=== PATIENT | female | born 1975 | race African-American/Black ===

== ENCOUNTER 2019-01-11 12:12 | Inpatient (IN) | payer OTHER ==
[~2019-01-11] VITALS: Ht 167.6 cm; Wt 104.3 kg
[2019-01-11 12:15] VITALS: BP 169/107
[2019-01-11] MEDS ORDERED: LOPRESSOR25 PO (12:17)
[2019-01-11 13:08] LABS: HEMATOCRIT 36.3 % (37.0-47.0); HEMOGLOBIN 11.9 gm/dL (12.0-15.0); MCH 26.6 pg (26.0-34.0); MCHC 32.9 g/dL (28.0-37.0); PLATELET COUNT 340 thou/uL (150-400); RBC 4.48 mil/uL (4.20-5.00); RDW 15.5 % (10.5-14.5)
[2019-01-11 13:25] LABS: CALCIUM 9.1 mg/dL (8.5-10.1); CREATININE 0.9 mg/dL (0.6-1.0); POTASSIUM 3.4 mmol/L (3.5-5.1)
[2019-01-11 13:30] LABS: ALBUMIN 3.1 g/dL (3.4-5.0); TOTAL BILIRUBIN 0.4 mg/dL (<0.1-1.0); TOTAL PROTEIN 7.9 g/dL (6.4-8.2)
[2019-01-11 13:50] LABS: ABSOLUTE NEUTROPHILS 10.5 thou/uL (1.4-8.2)
[2019-01-11 13:51] LABS: ANISOCYTOSIS 1+; HYPOCHROMASIA SLIGHT; LARGE PLATELETS OCCASIONAL
[2019-01-11 15:40] LABS: CSF CLARITY CLEAR; CSF COLOR COLORLESS; CSF RBC 1 /mm3; CSF WBC 2 /mm3 (0-10); VOLUME 8 ml
[2019-01-11 15:41] LABS: URINE BILIRUBIN NEGATIVE (Negative); URINE BLOOD 3+ (Negative); URINE CLARITY CLEAR; URINE COLOR YELLOW; URINE GLUCOSE-RANDOM* NEGATIVE (Negative); URINE KETONES NEGATIVE (Negative); URINE LEUKOCYTES-REFLEX NEGATIVE (Negative); URINE NITRITE-REFLEX NEGATIVE (Negative); URINE PROTEIN (DIPSTICK) TRACE (Negative); URINE SPECIFIC GRAVITY 1.025 (1.005-1.035); URINE UROBILINOGEN 0.2 E.U./dl (0.2-1.0)
[2019-01-11 15:44] LABS: CSF GLUCOSE 68 mg/dL (40-70)
[2019-01-11 15:50] LABS: CASTS None Seen /LPF (None Seen); SQUAMOUS 0-3 Few /LPF (0-3); URINE WBC-REFLEX 0-5 Rare /HPF (0-5)
[2019-01-11 15:51] LABS: AMORPHOUS URATES Many /LPF (None Seen)
--- NOTE | 2019-01-11 16:47 | EKG ---
[address] [address] ELECTROCARDIOGRAM REPORT Name: EDER ESPAÑA Room #: 170-3 ADM IN M.R.#: [id number] ������������������ Admission: 01/11/19 ������������������ Attend Phys: Jordan Reyes MD Discharge: ������������������ Date of : 79 Report #: [id number] ����������������������������������������������������������������� [id number] THIS REPORT FOR: //name// [facility] ED Test Date: 2019-01-11 Test Time: 12:34:44 Pat Name: EDER ESPAÑA Department: Room: 170 Gender: F Quality Review Specialist: LAMONT : 1975 Requested By: Austyn Santana Order Number: [id number] MD: Derek Dickey Measurements Intervals [place] Rate: 132 P: 49 AK: 145 QRS: -4 QRSD: 77 T: 90 QT: 272 QTc: 403 Interpretive Statements Sinus tachycardia Nonspecific T abnormalities, lateral leads No previous ECG available for comparison Electronically Signed On 01-11-2019 16:47:01 B[employer]BALL [employer]ER by Derek Dickey [email or web address] ��������������������������������������������� <ELECTRONICALLY SIGNED> ���������������������������������������� By: Derek Dickey MD ��������������������������������������������� 01/11/19 1647 1234 1234 Derek Dickey MD /SUNDAR
[2019-01-11 17:07] VITALS: BP 133/76
[2019-01-11 17:14] VITALS: BP 126/74
[2019-01-11 18:16] VITALS: BP 135/80
--- NOTE | 2019-01-11 19:07 | NUR ---
ADMITTED FROM ER UNDER 'S CARE. HR STILL AROUND 130 UPON ADMISSION. CALLED AND REPORTED. AFEBRILE UPON ADMISSION. AXOX4. C/O HEAD AND NBEACK PAIN. TX WITH MORHPINE. BREATHING REGULAR AND CTA JEAN MARIE. ABD SOFT AND NON TENDER. SCD APPLIED. ALL QUESTIONS AND CONCERNED ANSWERED. INITIATED IV ATB TX. NO S/S ACUTE DISTRESS NOTED OR REPORTED AT THIS TIME. FAMILY AT BEDSIDE. BEAN CALLED TO , ID.
[2019-01-11 20:00] VITALS: BP 139/82
--- NOTE | 2019-01-12 03:58 | NUR ---
PT GIVEN MORPHINE DURING THE NIGHT FOR PAIN PT USED CALL LIGHT EFFECTIVELY PT SLELPT MOST OF THE NIGHT NO ISSUES OVERNIGHT.
[2019-01-12 04:45] VITALS: BP 129/83
[2019-01-12 05:38] LABS: HEMATOCRIT 32.9 % (37.0-47.0); HEMOGLOBIN 10.6 gm/dL (12.0-15.0); MCH 26.4 pg (26.0-34.0); MCHC 32.2 g/dL (28.0-37.0); RBC 4.02 mil/uL (4.20-5.00); RDW 15.7 % (10.5-14.5); WBC 11.5 thou/uL (4.0-11.0)
[2019-01-12 05:56] LABS: CREATININE 0.8 mg/dL (0.6-1.0)
--- NOTE | 2019-01-12 06:27 | NUR ---
PT CALL LIGHT NROKEN BEGINNING OF SHIFT MAINTENANCE CALLED CALL LIGHT FIXED
[2019-01-12 08:00] VITALS: BP 151/91
[2019-01-12 15:00] VITALS: BP 138/85
--- NOTE | 2019-01-12 15:53 | NUR ---
PT ADMITTED RELATED TO TACHYCARDIA, HEAD/NECK PAIN. CM REVIEWED CHART AND SPOKE WITH CARE TEAM. CM MET WITH PT AND MOTHER AT BEDSIDE THIS DAY. PT IS A&O X4. CM ROLE INTRODUCED. PT INDICATED SHE LIVES IN A HOUSE WITH DTR AND NEPHEW. SHE INDICATED IT'S A RANCH STYLE HOUSE WITH NO STEPS TO ENTER AND NO STEPS INSIDE. 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 PT INDICATED NO DME OR HH HX. PT STATED THAT SHE PLANS TO RETURN HOME ONCE MEDICALLY STABLE. CM TO FOLLOW INDICATED WITH DC PLANNING.
[2019-01-12 19:30] VITALS: BP 137/80
--- NOTE | 2019-01-12 19:41 | NUR ---
CONTINUED WITH NECK/HEAD AND BACK PAIN TODAY. MEDICATED WITH TORADOL X 2 AND MORPHINE X 1 AND HELPFUL. UP INDEPENDENTLY TO BATHROOM WITH STEADY GAIT. MRI DONE THIS AM AND WAS NORMAL. ADVANCED TO REGULAR DIET FOR SUPPER. DENIED NAUSEA. LOW GRADE FEVER OF 99.0 THIS AM. MRSA MASAL SWAB SENT TO LAB. POTASSIUM 3.0. RECEIVED 3, 20MEQ PO DOSES THIS AM. WILL RECHECK IN AM. VERY PLEASANT AND COOPERATIVE.
[2019-01-13 05:35] VITALS: BP 148/96
[2019-01-13 05:49] LABS: ABSOLUTE NEUTROPHILS 6.9 thou/uL (1.4-8.2); BASOPHILS 0.4 % (0.0-2.0); EOSINOPHILS 1.5 % (0.0-3.0); HEMATOCRIT 32.6 % (37.0-47.0); HEMOGLOBIN 10.7 gm/dL (12.0-15.0); LYMPHOCYTES 18.9 % (24.0-44.0); MCH 26.9 pg (26.0-34.0); MCHC 32.7 g/dL (28.0-37.0); MCV 82.4 fL (80.0-100.0); MONOCYTES 5.8 % (1.0-8.0); PLATELET COUNT 305 thou/uL (150-400); POLYS 73.4 % (36.0-66.0); RBC 3.96 mil/uL (4.20-5.00); RDW 15.2 % (10.5-14.5); WBC 9.4 thou/uL (4.0-11.0)
[2019-01-13 05:59] LABS: CALCIUM 8.2 mg/dL (8.5-10.1); CREATININE 0.8 mg/dL (0.6-1.0); POTASSIUM 3.3 mmol/L (3.5-5.1)
[2019-01-13 07:15] VITALS: BP 151/90
[2019-01-13 15:00] VITALS: BP 156/100
--- NOTE | 2019-01-13 15:05 | NUR ---
PATIENT ARRIVED TO SENIOR SUITES WITH FAMILY AT BEDSIDE.PATIENT WAS ORIENTED TO ROOM.PATIENT WAS ABLE TO AMBULATE WO BED FROM WHEELCHAIR.PT HAS ALL OF HER BELONGINGS WITH HER.CHART WAS BROUGHT TO UNIT.PT HAS IV INTACT AND INFUSING.
[2019-01-13 19:34] VITALS: BP 153/111
--- NOTE | 2019-01-14 03:54 | NUR ---
PATIENT ALERT AND ORIENTED X4. UP ADLIB. FAMILY AT BEDSIDE IN EARLY EVENING. COMPLAINT OF HEADACHE - GIVEN MORPHINE IV PRN WITH GOOD RESULTS. NAUSEA WITH EMESIS, MEDICATED WITH ZOFRAN - NO FURTHER N/V. LAB CALLED AND STATED THAT PATIENT HAD A POSITIVE BLOOD CULTURE - GRAM + COCCI. MEDIUM BM REPORTED. RESTING QUIETLY, WILL MONITOR.
[2019-01-14 07:33] LABS: HEMATOCRIT 32.2 % (37.0-47.0); HEMOGLOBIN 10.8 gm/dL (12.0-15.0); MCH 27.1 pg (26.0-34.0); MCHC 33.5 g/dL (28.0-37.0); MCV 80.8 fL (80.0-100.0); RBC 3.98 mil/uL (4.20-5.00); RDW 15.2 % (10.5-14.5); WBC 7.4 thou/uL (4.0-11.0)
[2019-01-14 07:50] VITALS: BP 156/103
--- NOTE | 2019-01-14 15:39 | NUR ---
ASSUMED PATIENT AND CARES AT 0715, PATIENT LYING IN BED WOKE A&OX4, ABLE TO MAKE NEEDS KNOWN, PATIENT CURRENTLY WAITING FOR IV TEAM TO BE CONTACTED TO PLACE NEW IV, IV STOPPED WORKING PRIOR TO SHIFT CHANGE, PATIENT RECEIVED PAIN MEDICINE FOR HEADACHE PRIOR TO SHIFT CHANGE AND STATES ITS BETTER, REMAINS INDEPENDENT WITH ADLS AND TRANSFERS, PERSONAL BELONGINGS AND CALL LIGHT IN REACH, WILL CONTINUE TO MONITOR
[2019-01-14 17:15] VITALS: BP 153/93
--- NOTE | 2019-01-15 05:01 | NUR ---
PATIENT ALERT AND ORIENTED X4. UP ADLIB. C/O HEADACHE AND MEDICATED WITH GOOD RESULTS. IVPB INFUSING. NO C/O N/V. RESTING QUIETLY. WILL MONITOR.
[2019-01-15 08:39] VITALS: BP 169/99
[2019-01-15] MEDS ORDERED: LOPRESSOR50 PO (10:32)
[2019-01-15] MEDS ORDERED: KEFLEX500 M1 PO (10:32)
[2019-01-15 10:45] VITALS: BP 169/99
--- NOTE | 2019-01-15 11:06 | HC ---
[facility] [place] [address] CONSULTATION Name: EDER ESPAÑA Room #: 220-P ADM IN M.R.#: [id number] Admission: 01/11/19 ������������������ Attend Phys: Jordan Reyes MD Discharge: ������������������ Date of : [birth year] Report #: [id number] THIS REPORT FOR: //name// CC: Jordan TURNER unknown DATE OF SERVICE: 01/12/2019 ATTENDING PHYSICIAN: Jordan Reyes MD REASON FOR CONSULTATION: Fever. HISTORY OF PRESENT ILLNESS: The patient is a 43-year-old white woman admitted through the Emergency Room with history of headaches and neck pain. The patient was found to be febrile. She started on combination of Zosyn, vancomycin, acyclovir and Tamiflu. The patient undergoes spinal tap. This is negative for meningitis. She is scheduled for MRI of the C-spine. This is pending. The patient relates had neck pain and headache in the occipital region associated with some vomiting and fevers. She also is tachycardic and had vomiting a couple of occasion. PAST MEDICAL HISTORY: Hypertension. Hysterectomy for fibroids at [facility]. Cervical spine surgery and attempted spinal cord stimulator, which was not inserted on account of some side effects, complication. The patient is still having some occipital headaches and neck pain and the MRI is pending. 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 DRUG ALLERGIES: None listed. MEDICATIONS: The patient is on treatment with Tamiflu 75 mg b.i.d., acyclovir 600 mg IV every 8 hours, Zosyn 3.375 grams IV every 8 hours, vancomycin 1 gram IV every 8 hours. She is also on metoprolol, enoxaparin, morphine sulfate, acetaminophen, ondansetron as well as ketorolac. REVIEW OF SYSTEMS: See H and P and as above. PHYSICAL EXAMINATION: GENERAL: A well-developed, overweight woman. VITAL SIGNS: Temperature maximum 102.7 on 01/11/2018 at 12:46 p.m. Currently, temperature 99, pulse remains elevated at 115, respirations 16, BP 151/91. HEENMT: Head normocephalic, atraumatic. Pupils reactive. Mouth: No thrush or hairy leukoplakia. NECK: Cervical spine scar from previous C-spine surgery. Neck is supple, no thyromegaly. [facility] [address] [place] [address] CONSULTATION Name: EDER ESPAÑA Room #: 220-P [facility] IN M.R.#: [id number] Admission: 01/11/19 ������������������ Attend Phys: Jordan Reyes MD Discharge: ������������������ Date of : 79 Report #: [id number] LUNGS: Clear. HEART: S1, S2. No gallop or murmur. ABDOMEN: Soft, no masses or megaly. PELVIC AND RECTAL: Deferred. EXTREMITIES: No clubbing, cyanosis. NEUROLOGIC: Grossly within normal limits. LABORATORY DATA: O2 saturation 100% on room air. Spinal fluid normal. Sodium 138, potassium 3, BUN 7, creatinine 0.8, calcium 8.8, albumin low at 3.1 g/dL. C-reactive protein 119.9 ng/L. WBC on admission 13,000, hemoglobin 11.9 g/dL, platelets 340,000. White blood cell count differential revealed 81% segmented neutrophils. ESR 70 mm per hour. Urinalysis revealed trace protein, microscopic hematuria, bacteriuria and many amorphous urates. Influenza A and B negative. MICROBIOLOGY DATA: Blood cultures, no growth so far. Urine culture pending. RADIOLOGY EVALUATION: Chest x-ray revealed no acute pulmonary infiltrates. MRI of the thoracic and lumbar spine pending. I suppose we should add MRI of the cervical spine as well. ASSESSMENT: 1. Febrile illness with elevation of ESR and CRP and neck pain, headache of undetermined etiology. 2. Hypertension. 3. Status post hysterectomy and C-spine surgery. 4. Microscopic hematuria and bacteriuria. SUGGESTIONS: Recommend discontinuing acyclovir and Tamiflu. Possibly discontinue vancomycin if MRSA is by PCR negative. Suspect may be dealing with possible acute urinary tract infection and toxic headaches, neck pain. Obviously, we need MRI of the C-spine, T spine and L spine. Dr. Reyes, thank you for requesting my suggestion. ��������������������������������������������� <ELECTRONICALLY SIGNED> ���������������������������������������� By: Arcadio Dickey MD ��������������������������������������������� 01/15/19 1106 1006 09 Arcadio Dickey MD /nt
--- NOTE | 2019-01-15 12:57 | NUR ---
ASSUMED CARE AT SHIFT CHANGE. PT A/O X 4, CALM/PLESANT. DENIES PAIN THIS AM. VSS. PT UPDATED ON POC. PLAN TO DC TODAY. IV DISCONTINUED AND DC INFO DISCUSSED WITH PT. ALL QUESTIONS ANSWERED. SENT WITH RX X 2 AND CARE NOTES. PT ASSISTED HOME WITH FAMILY; WC TO VEHICLE. PT LEFT UNIT AROND 1230.
== END 2019-01-15 12:30 | disposition home or self-care (01) | DRG 690 ==
LOC: ER 12:12 → 4W 16:08 → EROBS 16:08 → 4W 17:07 → SICU 01-13 14:39 → ENTRNSPT 01-15 12:09 → EDTRNSPTSTS 01-15 12:12 → SICU 01-15 12:30
PROVIDERS: Emergency Medicine; ADMIT Hospitalist
PROC: 009U3ZX Drainage of Spinal Canal, Percutaneous Approach, Diagnostic (ICD-10-PCS; principal; 2019-01-11)
DX: N30.91 Cystitis, unspecified with hematuria (principal); R00.0 Tachycardia, unspecified; D72.829 Elevated white blood cell count, unspecified; E66.9 Obesity, unspecified; I10 Essential (primary) hypertension; B96.1 Klebsiella pneumoniae [K. pneumoniae] as the cause of diseases classified elsewhere; E87.6 Hypokalemia; Z90.710 Acquired absence of both cervix and uterus; Z68.37 Body mass index [BMI] 37.0-37.9, adult; Z79.899 Other long term (current) drug therapy
CPT/HCPCS: 10045; 15002

== ENCOUNTER 2019-12-21 15:54 | Emergency (ER) | payer OTHER ==
[~2019-12-21] VITALS: Ht 167.6 cm; Wt 104.3 kg
[~2019-12-21 15:54] MED LIST: KEFLEX500 M1 PO; LOPRESSOR25 PO; LOPRESSOR50 PO
[2019-12-21 15:55] VITALS: BP 186/102
[2019-12-21] MEDS ORDERED: PROMETH-CODEIN 65 ML PO (16:45)
[2019-12-21] MEDS ORDERED: MUCINEX600 MG PO (16:45)
[2019-12-21] MEDS ORDERED: PREDNISONE 20 M20 MG PO (16:45)
== END 2019-12-21 16:57 | disposition home or self-care (01) ==
LOC: ER 15:54
DX: J09.X2 Influenza due to identified novel influenza A virus with other respiratory manifestations (principal); I10 Essential (primary) hypertension; J45.909 Unspecified asthma, uncomplicated; Z90.710 Acquired absence of both cervix and uterus

== ENCOUNTER 2020-05-17 18:52 | Emergency (ER) | payer OTHER ==
[~2020-05-17] VITALS: Ht 167.6 cm; Wt 104.3 kg
[~2020-05-17 18:52] MED LIST changes: +MUCINEX600 MG PO; +PREDNISONE 20 M20 MG PO; +PROMETH-CODEIN 65 ML PO
[2020-05-17] MEDS ORDERED: COZAAR 25 MG TA25 M1 PO (19:06)
[2020-05-17] MEDS ORDERED: WAL-PROFEN200 M1 PO (19:12)
[2020-05-17] MEDS ORDERED: NORFLEX100 MG PO (20:11)
[2020-05-17] MEDS ORDERED: MOBIC7.5 MG PO (20:11)
[2020-05-17 20:35] VITALS: BP 190/109
== END 2020-05-17 20:40 | disposition home or self-care (01) ==
LOC: ER 18:52
DX: S29.012A Strain of muscle and tendon of back wall of thorax, initial encounter (principal); M54.2 Cervicalgia; I10 Essential (primary) hypertension; Z90.711 Acquired absence of uterus with remaining cervical stump; Z79.899 Other long term (current) drug therapy; V46.4XXA Person boarding or alighting a car injured in collision with other nonmotor vehicle, initial encounter; Y93.89 Activity, other specified; Y92.488 Other paved roadways as the place of occurrence of the external cause; Y99.8 Other external cause status

== ENCOUNTER 2021-01-26 11:56 | Emergency (ER) | payer OTHER ==
[~2021-01-26] VITALS: Ht 167.6 cm; Wt 104.3 kg
[~2021-01-26 11:56] MED LIST changes: +COZAAR 25 MG TA25 M1 PO; +MOBIC7.5 MG PO; +NORFLEX100 MG PO; +WAL-PROFEN200 M1 PO
[2021-01-26] MEDS ORDERED: AUGMENTIN 875-1 EACH PO (12:20)
[2021-01-26] MEDS ORDERED: MEDROLDOSEPACK PO (12:20)
[2021-01-26 12:57] VITALS: BP 137/85
== END 2021-01-26 12:58 | disposition home or self-care (01) ==
LOC: ER 11:56
DX: J32.9 Chronic sinusitis, unspecified (principal); J02.9 Acute pharyngitis, unspecified; I10 Essential (primary) hypertension; Z90.710 Acquired absence of both cervix and uterus; Z79.1 Long term (current) use of non-steroidal anti-inflammatories (NSAID); Z79.899 Other long term (current) drug therapy

== ENCOUNTER 2021-04-25 12:08 | Emergency (ER) | payer OTHER ==
[~2021-04-25] VITALS: Ht 167.6 cm; Wt 108.9 kg
[~2021-04-25 12:08] MED LIST changes: +AUGMENTIN 875-1 EACH PO; +MEDROLDOSEPACK PO
[2021-04-25] MEDS ORDERED: PREDNISONE 10 M10 MG PO (13:40)
[2021-04-25] MEDS ORDERED: METHOCARBAMOL750 MG PO (13:40)
[2021-04-25] MEDS ORDERED: DICLOFENAC SOD100 G1 TOP (13:41)
[2021-04-25 13:43] VITALS: BP 135/85
== END 2021-04-25 13:13 | disposition home or self-care (01) ==
LOC: ER 12:08
DX: M54.42 Lumbago with sciatica, left side (principal); I10 Essential (primary) hypertension; Z90.710 Acquired absence of both cervix and uterus

== ENCOUNTER 2021-10-07 15:29 | Emergency (ER) | payer OTHER ==
[~2021-10-07] VITALS: Ht 167.6 cm; Wt 108.0 kg
[~2021-10-07 15:29] MED LIST changes: +DICLOFENAC SOD100 G1 TOP; +METHOCARBAMOL750 MG PO; +PREDNISONE 10 M10 MG PO
[2021-10-07] MEDS ORDERED: OLMESARTAN MEDO20 MG PO (15:38)
[2021-10-07] MEDS ORDERED: FLEXERIL PO (15:39)
[2021-10-07] MEDS ORDERED: PERCOCET 10-321 EACH PO (15:39)
[2021-10-07 15:55] LABS: URINE BILIRUBIN NEGATIVE (Negative); URINE BLOOD 3+ (Negative); URINE CLARITY CLOUDY; URINE COLOR YELLOW; URINE GLUCOSE-RANDOM* NEGATIVE (Negative); URINE KETONES TRACE (Negative); URINE LEUKOCYTES-REFLEX NEGATIVE (Negative); URINE NITRITE-REFLEX NEGATIVE (Negative); URINE PROTEIN (DIPSTICK) TRACE (Negative); URINE SPECIFIC GRAVITY >= 1.030 (1.005-1.035); URINE UROBILINOGEN 0.2 E.U./dl (0.2-1.0)
[2021-10-07 16:09] LABS: CASTS None Seen /LPF (None Seen); SQUAMOUS >10 Many /LPF (0-3); URINE WBC-REFLEX 0-5 Rare /HPF (0-5)
[2021-10-07 16:10] LABS: BACTERIA-REFLEX 1-9 Few /HPF (None Seen); CRYSTALS None Seen /LPF (None Seen); URINE RBC >20 Many /HPF (NONE SEEN)
[2021-10-07 17:45] LABS: HEMATOCRIT 39.4 % (37.0-47.0); HEMOGLOBIN 12.9 gm/dL (12.0-15.0); MCHC 32.8 g/dL (28.0-37.0); MCV 85.5 fL (80.0-100.0); RBC 4.61 mil/uL (4.20-5.00); RDW 15.4 % (10.5-14.5); WBC 7.3 thou/uL (4.0-11.0)
[2021-10-07 17:53] LABS: CALCIUM 9.2 mg/dL (8.5-10.1); POTASSIUM 4.6 mmol/L (3.5-5.1)
[2021-10-07 17:59] LABS: ALBUMIN 3.4 g/dL (3.4-5.0); TOTAL BILIRUBIN 0.1 mg/dL (0.2-1.0)
[2021-10-07] MEDS ORDERED: ZOFRAN ODT4 MG PO (19:31)
[2021-10-07] MEDS ORDERED: FLOMAX0.4 MG PO (19:31)
[2021-10-07] MEDS ORDERED: NORCO5 PO (19:31)
[2021-10-07 20:18] VITALS: BP 137/90
== END 2021-10-07 20:21 | disposition home or self-care (01) ==
LOC: ER 15:29
PROVIDERS: Nurse Practitioner Family
DX: N20.1 Calculus of ureter (principal); I10 Essential (primary) hypertension; F12.90 Cannabis use, unspecified, uncomplicated; Z87.442 Personal history of urinary calculi; Z90.710 Acquired absence of both cervix and uterus; Z86.16 Personal history of COVID-19; Z79.1 Long term (current) use of non-steroidal anti-inflammatories (NSAID); Z79.899 Other long term (current) drug therapy; Z88.8 Allergy status to other drugs, medicaments and biological substances

== ENCOUNTER 2021-10-10 17:16 | Emergency (ER) | payer OTHER ==
[~2021-10-10] VITALS: Ht 167.6 cm; Wt 106.6 kg
[~2021-10-10 17:16] MED LIST changes: +FLEXERIL PO; +FLOMAX0.4 MG PO; +NORCO5 PO; +OLMESARTAN MEDO20 MG PO; +PERCOCET 10-321 EACH PO; +ZOFRAN ODT4 MG PO
[2021-10-10] MEDS ORDERED: AUGMENTIN 875-1 EACH PO (18:20)
[2021-10-10 18:37] LABS: URINE BILIRUBIN NEGATIVE (Negative); URINE BLOOD 3+ (Negative); URINE CLARITY SL CLOUDY; URINE COLOR YELLOW; URINE GLUCOSE-RANDOM* NEGATIVE (Negative); URINE KETONES NEGATIVE (Negative); URINE LEUKOCYTES-REFLEX NEGATIVE (Negative); URINE NITRITE-REFLEX NEGATIVE (Negative); URINE PROTEIN (DIPSTICK) NEGATIVE (Negative); URINE SPECIFIC GRAVITY 1.025 (1.005-1.035); URINE UROBILINOGEN 0.2 E.U./dl (0.2-1.0)
[2021-10-10 18:47] LABS: CASTS None Seen /LPF (None Seen); SQUAMOUS 4-10 Moderate /LPF (0-3)
[2021-10-10 18:48] LABS: BACTERIA-REFLEX 1-9 Few /HPF (None Seen); CRYSTALS None Seen /LPF (None Seen); URINE RBC >20 Many /HPF (NONE SEEN); URINE WBC-REFLEX 0-5 Rare /HPF (0-5)
[2021-10-10 20:27] LABS: ABSOLUTE NEUTROPHILS 5.3 thou/uL (1.4-8.2); BASOPHILS 0.8 % (0.0-2.0); EOSINOPHILS 1.7 % (0.0-3.0); HEMATOCRIT 38.8 % (37.0-47.0); HEMOGLOBIN 12.6 gm/dL (12.0-15.0); LYMPHOCYTES 27.9 % (24.0-44.0); MCH 27.7 pg (26.0-34.0); MCHC 32.5 g/dL (28.0-37.0); MCV 85.2 fL (80.0-100.0); MONOCYTES 6.1 % (1.0-8.0); PLATELET COUNT 325 thou/uL (150-400); POLYS 63.5 % (36.0-66.0); RBC 4.55 mil/uL (4.20-5.00); RDW 15.5 % (10.5-14.5); WBC 8.3 thou/uL (4.0-11.0)
[2021-10-10 20:39] LABS: CREATININE 0.9 mg/dL (0.6-1.0); POTASSIUM 4.3 mmol/L (3.5-5.1)
[2021-10-10 20:43] LABS: ALBUMIN 3.1 g/dL (3.4-5.0); TOTAL BILIRUBIN 0.2 mg/dL (0.2-1.0); TOTAL PROTEIN 6.7 g/dL (6.4-8.2)
[2021-10-10] MEDS ORDERED: TORADOL 10 MG T10 MG PO (20:51)
[2021-10-10 21:08] VITALS: BP 143/90
--- NOTE | 2021-10-12 07:37 | EKG ---
[address] [place] [address] ELECTROCARDIOGRAM REPORT Name: EDER ESPAÑA [id number] Admission: 10/10/21 Attend Phys: Discharge: 10/10/21 Date of : 79 Report #: [id number] [facility] ED Test Date: 2021-10-10 Test Time: 17:57:21 Pat Name: EDER ESPAÑA Department: Room: Gender: F Temporary Receptionist: : 1975 Requested By: Enrique Grimm Order Number: [id number] MD: Tomás Fontaine Measurements Intervals [place] Rate: 91 P: 69 MD: 150 QRS: 26 QRSD: 81 T: 21 QT: 344 QTc: 424 Interpretive Statements Sinus rhythm Compared to ECG 01/11/2019 12:34:44 Sinus tachycardia no longer present T-wave abnormality no longer present Electronically Signed On 10-12-2021 7:37:12 INJECTION MOLD TOOLING TECHNICIAN by Tomás Fontaine [email or web address] <ELECTRONICALLY SIGNED> By: Tomás Fontaine MD, [facility] 10/12/21 0737 1757 1757 Tomás Fontaine MD, FACC /EPI
== END 2021-10-10 21:08 | disposition home or self-care (01) ==
LOC: ER 17:16
PROVIDERS: Physician Assistant
DX: N20.0 Calculus of kidney (principal); R31.9 Hematuria, unspecified; I10 Essential (primary) hypertension; Z90.710 Acquired absence of both cervix and uterus; Z87.442 Personal history of urinary calculi; Z79.891 Long term (current) use of opiate analgesic; Z79.899 Other long term (current) drug therapy; Z79.1 Long term (current) use of non-steroidal anti-inflammatories (NSAID); Z88.8 Allergy status to other drugs, medicaments and biological substances